=== PATIENT | female | born 1995 | race Caucasian/White ===

== ENCOUNTER 2024-06-18 10:57 | Outpatient (CLI) | payer MEDICAID ==
[~2024-06-18] VITALS: Ht 154.9 cm; Wt 102.3 kg
--- NOTE | 2024-06-18 10:15 | NUR ---
1015PT AMBULATORY TO UNIT WITH SPOUSE FOR SCHEDULED ECV. PT CHANGED INTO GOWN. PT COMFORTABLE IN BED. 1025THIS RN AT BEDSIDE TO PLACE TOCO AND EFM. EFM TRACING CAT I. PT VITAL SIGNS STABLE. 1030PT REPORTS POSITIVE MOVEMENT. PT DENIES CTX, DENIES LOF, AND DENIES ANY VAGINAL BLEEDING. THIS RN DISCUSSES POC WITH PT. PT VERBALIZES UNDERSTADING AND AGREEMENT. 1110IV STARTED AT THIS TIME
[~2024-06-18 10:57] MED LIST: PRENATAL TABLET PO; Terbutaline 1 MG/ML 1 ML AMP SQ PRN
[2024-06-18 11:00] VITALS: BP 128/82; PULSE 93
[2024-06-18 11:30] VITALS: BP 113/69; PULSE 63
--- NOTE | 2024-06-18 11:56 | NUR ---
1150DR SHAILESH ON UNIT. 1152DR SHAILESH AT BEDSIDE. DISCUSSES POC WITH PT. PT VERBALIZES UNDERSTANDING AND AGREEMENT. 1153DR SHAILESH BEDSIDE SONOGRAM AT THIS TIME TO CHECK POSITION. BABY IS STILL HEAD DOWN. 1156VORB PER DR CASH TO GO AHEAD AND ADMINISTER TERBUTALINE. THIS RN ADMINISITERS TERBUTALING SUBCUTANEOUSLY IN THE BACK OF THE LEFT UPPER ARM. PT TOLERATES WELL.
[2024-06-18 12:00] VITALS: BP 110/65; PULSE 72
--- NOTE | 2024-06-18 12:17 | NUR ---
1212DR SHAILESH, SHANE RN, AND GAUDENCIO RN AT BEDSIDE. [id number] DR CASH ATTEMPTS VERSION. VERSION IS UNSUCCESSFUL. 1217PT BUT BACK ON MONITORS. EFM TRACING CAT I. VORB PER DR CASH TO [facility] PT FOR AN HOUR.
[2024-06-18 12:30] VITALS: BP 111/68; PULSE 90
[2024-06-18 13:00] VITALS: BP 113/64; PULSE 82
[2024-06-18 13:20] VITALS: BP 123/72; PULSE 90
--- NOTE | 2024-06-18 13:25 | NUR ---
1217-1325EFM TRACING CAT I. PT TAKEN OFF MONITORS. 1330THIS RN AT BEDSIDE TO DISCUSS DISCHARGE INSTRUCTIONS. EARLY LABOR PRECAUTIONS DISCUSSED. DISCOMFORTS OF DISCUSSED. PT VERBALIZES UNDERSTANDING. 1335PT AMBULATORY OFF UNIT WITH SPOUSE FOR DESTINATION HOME.
== END 2024-06-18 13:35 | disposition home or self-care (01) ==
LOC: LDRO 10:57
DX: O32.8XX0 Maternal care for other malpresentation of fetus, not applicable or unspecified (principal); Z3A.37 37 weeks gestation of pregnancy
CPT/HCPCS: J3105

== ENCOUNTER 2024-06-23 16:31 | Outpatient (CLI) | payer MEDICAID ==
[~2024-06-23] VITALS: Ht 154.9 cm; Wt 101.4 kg
[~2024-06-23 16:31] MED LIST changes: -Terbutaline 1 MG/ML 1 ML AMP SQ PRN
[2024-06-23] MEDS ORDERED: CLARITIN 1010 MG/TAB PO (17:00)
[2024-06-23] MEDS ORDERED: Acetaminophen 500 MG TAB PO PRN (17:15)
--- NOTE | 2024-06-23 17:17 | NUR ---
Pt and spouse arrive ambulatory at 1640. Pt changes into gown, EFM explained and placed, VS taken. Pt reports abdominal tightening and leaking of mucous since about 0300 this morning. Pt unsure if leaking fluid, unusre of contractions as she did not have them with first baby. Pt denies vaginal bleeding, reports good movement. Pt was failed version 06/19. FHR cat 1, uterine activity more like irritability than defined contractions, however top of uterus tight on palpation. Amnitest swab negative. SVE /-4, membranes intact. Pt provided urine sample, urine very dark. Pt reports not having much to drink today. Water jug provided, instructed pt to drink as much as she can. Dr. Blair notified, see physician notification, orders received for UA and Tylenol.
[2024-06-23 17:30] VITALS: BP 123/80; PULSE 85; TEMP 97.6
[2024-06-23 17:36] LABS: COLLECTION METHOD CLEAN CATCH
[2024-06-23 17:46] LABS: PH 5.5 (5.0-8.5); URINE APPEARANCE CLOUDY (CLEAR/HAZY); URINE BLOOD NEGATIVE (NEGATIVE); URINE COLOR Dark Yellow (YELLOW); URINE GLUCOSE NEGATIVE (NEGATIVE); URINE KETONE TRACE (NEGATIVE); URINE NITRATE NEGATIVE (NEGATIVE); URINE PROTEIN(semi-quant) 1+ (NEGATIVE)
[2024-06-23 18:00] VITALS: BP 128/74; PULSE 60
[2024-06-23] MEDS ORDERED: cefTRIAXone 500 MG,Lidocaine PF 1% 1 ML IM ONE (18:15)
[2024-06-23] MEDS ORDERED: MACROBID 1100 MG/CAP PO (18:17)
--- NOTE | 2024-06-23 18:18 | NUR ---
Repeat SVE unchanged. Dr. Blair notified and read results of UA. Per physician, will treat for UTI, orders received. Pt informed of plan of care, verbalized understanding and agreement.
[2024-06-23] MEDS ORDERED: cefTRIAXone 1 G,Lidocaine PF 1% 2.1 ML IM ONE (18:30)
[2024-06-23 18:49] VITALS: BP 113/70; PULSE 69; TEMP 97.6
--- NOTE | 2024-06-23 18:50 | NUR ---
Ambulatory off of unit, accompanied by significant other. Discharge instructions gone over with patient, including ways to prevent recurrent UTI, early labor instructions, and discomforts of . Patient to olive picker prescription first thing in am from [facility]. Verbalizes understanding.
== END 2024-06-23 18:50 | disposition home or self-care (01) ==
LOC: LDRO 16:31
PROVIDERS: Obstetrics & Gynecology
DX: O26.893 Other specified pregnancy related conditions, third trimester (principal); R10.9 Unspecified abdominal pain; Z3A.37 37 weeks gestation of pregnancy
CPT/HCPCS: J0696

== ENCOUNTER 2024-07-04 05:19 | Inpatient (IN) | payer MEDICAID ==
[2024-07-04] VITALS (16 sets, daily range): BP systolic 86–171; BP diastolic 46–150; PULSE 50–123; TEMP 97.6–98.6
[~2024-07-04] VITALS: Ht 154.9 cm; Wt 103.6 kg
[~2024-07-04 05:19] MED LIST changes: +CLARITIN 1010 MG/TAB PO; +MACROBID 1100 MG/CAP PO
[2024-07-04] MEDS ORDERED: droPERidol 2.5 MG/ML 2 ML VIAL IV PRN (05:30)
[2024-07-04] MEDS ORDERED: Ondansetron 4 MG/2 ML VIAL IV PRN ×2 (05:30→11:15)
[2024-07-04] MEDS ORDERED: LR 1,000 ML IV SCH ×2 (05:30)
[2024-07-04 06:02] LABS: BASO # 0.1 K/mm3 (0.0-0.2); BASO % 0.6 % (0.0-2.0); EOS # 0.1 K/mm3 (0.0-0.7); EOS % 0.6 % (0.0-4.0); GRAN % 67.3 % (42.2-75.2); HEMATOCRIT 41.2 % (37.0-47.0); HEMOGLOBIN 13.7 g/dl (12.5-16.0); LYMPH # 2.6 K/mm3 (1.2-3.4); LYMPH % 25.1 % (20.0-51.0); MEAN CELL VOLUME 90 fl (80.0-100.0); MEAN CORPUSCULAR HEMOGLOBIN 30 pg (27-31); MEAN CORPUSCULAR HGB CONC 33 g/dl (33.0-37.0); MEAN PLATELET VOLUME 13.4 fl (7.4-10.4); MONO # 0.6 K/mm3 (0.1-0.6); MONO % 5.6 % (1.7-9.3); PLATELET COUNT 282 K/mm3 (130-400); RED BLOOD COUNT 4.56 M/mm3 (4.10-5.30); REDCELL DISTRIBUTION WIDTH-CV 13.3 % (11.5-14.5)
[2024-07-04] MEDS ORDERED: dexAMETHasone 10 MG/ML VIAL ONE (07:10)
[2024-07-04] MEDS ORDERED: Oxytocin 10 UNITS/ML VIAL ONE (07:10)
[2024-07-04] MEDS ORDERED: Ketorolac 30 MG/ML VIAL ONE (07:10)
[2024-07-04] MEDS ORDERED: Phenylephrine 10 MG/ML VIAL ONE (07:10)
[2024-07-04] MEDS ORDERED: Ondansetron 4 MG/2 ML VIAL ONE (07:10)
[2024-07-04] MEDS ORDERED: NS 30 ML IV ONE (07:10)
[2024-07-04] MEDS ORDERED: EPINEPHrine 1 MG/1 ML Ampule ONE (07:12)
[2024-07-04] MEDS ORDERED: Loratadine 10 MG TAB PO PRN (08:30)
[2024-07-04] MEDS ORDERED: Magnes Hydrox (MOM) 80 MG/ML 30 ML CUP PO PRN (08:30)
[2024-07-04] MEDS ORDERED: Prenatal Vitamins/Iron/FA TAB PO SCH (09:00)
--- NOTE | 2024-07-04 09:10 | NUR ---
PT BLOOD PRESSURE 144/134, HEART RATE 69, O2 97. PT MOVING ARMS AND REPOSITIONING TO BREAST FEED BABY AT THIS TIME DURING VS BEING MEASURED. PT AWAKE AND ALERT X3.
--- NOTE | 2024-07-04 09:20 | NUR ---
PT URINE OUTPUT DURING PACU WAS 25 ML, SHEBA, CLEAR. PT BLOOD PRESSURE 82/65, HEART RATE 62, AND RESPIRATIONS AT 16, KIMO ORACLE SOA ARCHITECT NOTIFIED OF PT VS. PER KIMO REPORT, START FLUID BOLUS AND NOTIFY WITH CHANGES. PRESSURE WITH FLUID BOLUS GIVEN TO PT PER KIMO ORACLE SOA ARCHITECT, PT HEAD OF BED LOWERED, AND THIS RN INSPECTED DIALLO CATHETER FOR KINKS OR OCCLUSIONS. PT AWAKE AND ALERT X3, DENIES FEELING DIZZY CONFUSED OR NAUSEOUS. PT SPOUSE SUPPORTIVE AT BEDSIDE. PT BREAST FEEDING CHILD AT THIS TIME.
--- NOTE | 2024-07-04 09:45 | NUR ---
PT PACU VS STABLE, PT TRANSFERED OVER TO ROOM. PT BLOOD PRESSURE 119/46, HEART RATE 113, AND RESPIRATIONS 16. PT REPOSITIONING IN BED, CHANGING PADS, AND RECEIVING EULALIA CARE PER THIS RN. FUNDUS FIRM AT PT UMBILICUS, SCANT LOCHIA, NO CLOTS, PT DENIES PAIN. THIS RN REMINDS PT OF FREQUENT VS ASSESSMENTS AND TO ATTEMPT TO KEEP ARM AND BODY STILL DURING INFLATION OF BP CUFF. PT VERBALLY UNDERSTANDING, SPOUSE SUPPORTIVE AT BEDSIDE HOLDING INFANT
--- NOTE | 2024-07-04 10:00 | NUR ---
PT REPOSITIONING THEMSELVES TO HOLD BABY AT THIS TIME, PT VS RESULT WITH BLOOD PRESSURE 123/102, HEART RATE 283. PT REPORTED SHE WAS HOLDING BABY DURING BP CUFF INFLATION. PT AWAKE AND ALERT X3, DENIES PAIN. PT FUNDUS FIRM AT UMBILICUS, SCANT LOCHIA, NO CLOTS. DIALLO DRAINING CLEAR YELLOW URINE
--- NOTE | 2024-07-04 10:15 | NUR ---
PT REPOSITIONED IN BED WITH STUDENT NURSE HELP, CHUX PAD, EULALIA PEACH PAD, AND BINDER PLACED ON PT. PT AWAKE AND ALERT X3, SHAKING INVOLUNTARILY, PT REPORTS NOT FEELING COLD "BUT CAN'T HELP IT." PT VS TAKEN AFTER REPOSITIONING WITH BLOOD PRESSURE 157/121 AND HEART RATE AT 123. THIS RN REMAINS AT PT BEDSIDE TO MONITOR.
--- NOTE | 2024-07-04 10:45 | NUR ---
[id number] PT REPORTS "I'M SHAKING AND CAN'T HELP IT. IS THIS NORMAL?" THIS RN EXPLAINS TO PT THAT SHAKING IS A NORMAL HORMONE RESPONSE DURING AND AFTER DELIVERY OF . PT VS DIFFICULT TO TRACE DURING THIS TIME DUE TO PT MOVEMENT. PT AWAKE AND ALERT X3
[2024-07-04] MEDS ORDERED: Acetaminophen 500 MG TAB PO SCH (11:15)
[2024-07-04] MEDS ORDERED: Tdap Vaccine 0.5 ML SYRINGE IM SCH (11:15)
[2024-07-04] MEDS ORDERED: Measles/Mumps/Rubella Virus Vaccine Live w Diluent 0.5 ML VIAL SQ SCH (11:15)
[2024-07-04] MEDS ORDERED: LR 1,000 ML IV PRN (11:15)
[2024-07-04] MEDS ORDERED: Morphine 4 MG/ML VIAL IV PRN (11:15)
[2024-07-04] MEDS ORDERED: Naloxone 0.4 MG/ML VIAL IV PRN (11:15)
[2024-07-04] MEDS ORDERED: oxyCODONE 5 MG TAB PO PRN (11:15)
--- NOTE | 2024-07-04 11:15 | NUR ---
MANUAL BLOOD PRESSURE OBTAINED PER THIS RN TO COMPAIR DYNAMAP VITAL SIGN RESULTS, PT BLOOD PRESSURE MANUAL IS 129/70, HEART RATE 62. PT AWAKE AND ALERT X3, DENIES PAIN, FUNDUS FIRM AT UMBILICUS, SCANT LOCHIA, NO CLOTS.
[2024-07-04] MEDS ORDERED: Ibuprofen 600 MG TAB PO SCH (14:24)
[2024-07-04] MEDS ORDERED: Sennosides/Docusate 8.6-50 MG TAB PO SCH (17:00)
[2024-07-04] MEDS ORDERED: traZODone 50 MG TAB PO PRN (21:00)
[2024-07-05 00:15] VITALS: BP 103/64; PULSE 57; TEMP 98.3
[2024-07-05 05:56] LABS: HEMATOCRIT 32.1 % (37.0-47.0); HEMOGLOBIN 10.9 g/dl (12.5-16.0)
[2024-07-05 07:09] VITALS: BP 117/78; PULSE 65; TEMP 98.4
[2024-07-05] MEDS ORDERED: IBU600 MG PO (09:00)
[2024-07-05] MEDS ORDERED: ROXICODONE 55 MG/TAB PO (09:00)
[2024-07-05] MEDS ORDERED: TYLENOL 500MG500 MG PO (09:00)
--- NOTE | 2024-07-05 09:27 | NUR ---
Initial visit; Parents thanked Oxygen Equipment Preparer for offering congratulations and God's blessings for the of their daughter. Oxygen Equipment Preparer thanked parents for choosing [facility].
[2024-07-05 16:15] VITALS: BP 116/78; PULSE 69; TEMP 98.7
[2024-07-05 19:10] VITALS: BP 113/71; PULSE 71; TEMP 97.4
[2024-07-06 07:39] VITALS: BP 137/70; PULSE 81; TEMP 98.2
--- NOTE | 2024-07-06 13:15 | NUR ---
ALL DC PAPERWORK, FOLLOW UP APPOINTMENTS, AND EDUCATION REVIEWED AND UNDERSTOOD. PT AND SPOUSE DENY FURTHER QUESTIONS OR CONCERNS. PT TO PARKING LOT IN WHEELCHAIR IN STABLE CONDITION.
== END 2024-07-06 13:15 | disposition home or self-care (01) | DRG 788 ==
LOC: OB 05:19
PROVIDERS: ADMIT Obstetrics & Gynecology
PROC: 10D00Z1 Extraction of Products of Conception, Low, Open Approach (ICD-10-PCS; principal; 2024-07-04)
DX: O32.1XX0 Maternal care for breech presentation, not applicable or unspecified (principal); Z3A.39 39 weeks gestation of pregnancy; Z37.0 Single live birth
CPT/HCPCS: A9284; J0171; J0665; J0690; J1100; J1885; J2371; J2405; J2590; J7120